=== PATIENT | male | born 1960 | race African-American/Black ===

== ENCOUNTER 2017-07-08 13:56 | Emergency (ER) | payer MEDICAID ==
[~2017-07-08] VITALS: Ht 180.3 cm; Wt 80.0 kg
[2017-07-08] MEDS ORDERED: KETOROLAC 30MG/ML VIAL IM ONE (16:45)
[2017-07-08] MEDS ORDERED: HYDROCODONE/ACETAMINOPHEN 5/325MG TABLET PO ONE (17:15)
[2017-07-08 19:18] VITALS: BP 141/90
== END 2017-07-08 19:35 | disposition home or self-care (01) ==
LOC: ER 14:38
DX: M54.5 Low back pain (principal); M25.551 Pain in right hip; I10 Essential (primary) hypertension; E78.00 Pure hypercholesterolemia, unspecified; E11.9 Type 2 diabetes mellitus without complications
CPT/HCPCS: 72100; 73502; 96372; 99284; J1885; Z7610

== ENCOUNTER 2019-11-30 11:08 | Inpatient (IN) | payer MEDICAID ==
[~2019-11-30] VITALS: Ht 162.6 cm; Wt 74.8 kg
[2019-11-30 12:10] LABS: BASOPHILS % 0.8 % (0.0-2.0); EOSINOPHILS % 4.5 % (0.0-5.0); HEMATOCRIT. 47.3 % (42.0-52.0); HEMOGLOBIN. 15.4 g/dL (14.0-18.0); LYMPHOCYTES % 42.4 % (20.0-50.0); MEAN CORPUSCULAR VOLUME 88.9 fL (80.0-94.0); MONOCYTES % 9.1 % (2.0-8.0); NEUTROPHILS % 43.2 % (40.0-76.0); RED BLOOD CELL COUNT 5.32 mill/uL (4.7-6.1); RED CELL DISTRIBUTION WIDTH 16.3 % (11.6-14.6)
[2019-11-30 12:16] LABS: CHLORIDE 104 mEq/L (98-107)
[2019-11-30 12:20] LABS: ETHANOL BLOOD < 10 mg/dL
[2019-11-30 12:23] LABS: LDL CHOLESTEROL 117 mg/dL (5-100)
[2019-11-30 12:38] LABS: PLATELET 195 x1000/uL (130-400)
[2019-11-30] MEDS ORDERED: ASPIRIN 325MG EC TABLET PO ONE (12:45)
[2019-11-30] MEDS ORDERED: POTASSIUM CHLORIDE 20MEQ TABLET SR PO ONE (12:45)
[2019-11-30] MEDS ORDERED: KCL 10MEQ/50ML PREMIX 50 ML IV ONE (13:00)
[2019-11-30 14:00] VITALS: BP 155/88
[2019-11-30] MEDS ORDERED: SITA100T11 MT (14:29)
[2019-11-30] MEDS ORDERED: METO25TA6 MT (14:29)
[2019-11-30] MEDS ORDERED: HYDR-3281 MT (14:29)
[2019-11-30] MEDS ORDERED: B50 MT (14:29)
[2019-11-30] MEDS ORDERED: LANS30TA4 MT (14:29)
[2019-11-30] MEDS ORDERED: AMA2 MT (14:29)
[2019-11-30] MEDS ORDERED: ATOR20TA65 MT (14:29)
[2019-11-30] MEDS ORDERED: ALOG1TAB8 PO (14:29)
[2019-11-30] MEDS ORDERED: AMLO-337 MT (14:29)
[2019-11-30] MEDS ORDERED: CHLO25TA2 PO (14:29)
[2019-11-30] MEDS ORDERED: METF750T PO (14:29)
[2019-11-30 16:00] VITALS: BP 153/66
[2019-11-30] MEDS: ENOXAPARIN 40MG/0.4ML SYR SUBCUT SCH (16:14)
[2019-11-30] MEDS ORDERED: CLONIDINE 0.1MG TABLET PO PRN (16:30)
[2019-11-30] MEDS ORDERED: ONDANSETRON HCL 4MG/2ML INJ IV PRN (16:30)
[2019-11-30 20:00] VITALS: BP 135/82
[2019-11-30] MEDS: ATORVASTATIN CALCIUM 40MG TABLET PO SCH (21:26)
[2019-11-30 21:48] LABS: FOLIC ACID (FOLATE) SERUM 11.8 ng/mL (>5.38)
[2019-11-30 23:51] LABS: PROTHROMBIN TIME 10.9 sec (9.6-11.0)
[2019-12-01] VITALS: BP 135/79
[2019-12-01 00:10] LABS: T4 FREE 1.13 ng/dL (0.76-1.46)
[2019-12-01 04:00] VITALS: BP 141/85
[2019-12-01 06:15] LABS: HEMATOCRIT. 44.2 % (42.0-52.0); HEMOGLOBIN. 14.6 g/dL (14.0-18.0); MEAN CORPUSCULAR HEMOGLOBIN 29.3 pg (28.0-32.0); MEAN CORPUSCULAR VOLUME 88.7 fL (80.0-94.0); RED BLOOD CELL COUNT 4.98 mill/uL (4.7-6.1); RED CELL DISTRIBUTION WIDTH 16.4 % (11.6-14.6)
[2019-12-01 06:20] LABS: CHLORIDE 103 mEq/L (98-107)
[2019-12-01 08:00] VITALS: BP 130/82
[2019-12-01 08:25] LABS: MEAN PLATELET VOLUME 8.8 fl (7.4-10.4); PLATELET 198 x1000/uL (130-400); PLATELET ESTIMATE NORMAL
[2019-12-01] MEDS ORDERED: ASPIRIN 81MG TABLET PO SCH (09:00)
[2019-12-01] MEDS: CLOPIDOGREL 75MG TABLET PO SCH (10:34)
[2019-12-01] MEDS ORDERED: POTASSIUM CHLORIDE 20MEQ TABLET SR PO SCH ×2 (11:45→15:15)
[2019-12-01 12:00] VITALS: BP 134/74
[2019-12-01] MEDS ORDERED: POTASSIUM CHLORIDE INJ 40 MEQ in DEXT 5% WATER 250 ML IV SCH (13:00)
[2019-12-01] MEDS: ENOXAPARIN 40MG/0.4ML SYR SUBCUT SCH (14:51)
[2019-12-01 16:00] VITALS: BP 136/80
[2019-12-01 18:37] LABS: *AMPHETAMINES SCREEN URINE NEGATIVE (NEGATIVE); *BARBITURATES SCREEN URINE NEGATIVE (NEGATIVE); *COCAINE SCREEN URINE PRESUMTIVE POSITIVE (NEGATIVE); CANNABINOID URINE SCREEN NEGATIVE (NEGATIVE); METHADONE URINE SCREEN NEGATIVE (NEGATIVE); OPIATES URINE SCREEN NEGATIVE (NEGATIVE); PHENCYCLIDINE URINE SCREEN NEGATIVE (NEGATIVE)
[2019-12-01 18:38] LABS: *BENZODIAZEPINES SCREEN URINE NEGATIVE (NEGATIVE)
[2019-12-01 20:00] VITALS: BP 142/87
[2019-12-01] MEDS: ATORVASTATIN CALCIUM 40MG TABLET PO SCH (21:26)
[2019-12-01] MEDS: MAGNESIUM/ALUMINUM HYDROXIDE/SIMETHICONE 30ML UDC PO PRN (22:52)
[2019-12-01] MEDS: ZOLPIDEM TARTRATE 5MG TABLET PO PRN (22:52)
[2019-12-02] VITALS: BP 112/67
[2019-12-02 04:00] VITALS: BP 123/72
[2019-12-02 08:00] VITALS: BP 149/82
[2019-12-02] MEDS: CLOPIDOGREL 75MG TABLET PO SCH (09:35)
[2019-12-02 12:00] VITALS: BP 135/84
[2019-12-02] MEDS: ENOXAPARIN 40MG/0.4ML SYR SUBCUT SCH (13:28)
[2019-12-02 16:00] VITALS: BP 120/77
[2019-12-02 20:00] VITALS: BP 129/74
[2019-12-02] MEDS: ZOLPIDEM TARTRATE 5MG TABLET PO PRN (20:12)
[2019-12-02] MEDS: MAGNESIUM/ALUMINUM HYDROXIDE/SIMETHICONE 30ML UDC PO PRN (20:12)
[2019-12-02] MEDS: ATORVASTATIN CALCIUM 40MG TABLET PO SCH (20:12)
[2019-12-03] VITALS: BP 134/83
[2019-12-03 04:00] VITALS: BP 134/77
[2019-12-03 05:28] LABS: BASOPHILS % 0.6 % (0.0-2.0); EOSINOPHILS % 4.2 % (0.0-5.0); HEMATOCRIT. 41.6 % (42.0-52.0); LYMPHOCYTES % 56.4 % (20.0-50.0); MEAN CORPUSCULAR HEMOGLOBIN 29.6 pg (28.0-32.0); MEAN CORPUSCULAR VOLUME 88.1 fL (80.0-94.0); MEAN PLATELET VOLUME 8.7 fl (7.4-10.4); MONOCYTES % 9.3 % (2.0-8.0); NEUTROPHILS % 29.5 % (40.0-76.0); PLATELET 202 x1000/uL (130-400); RED BLOOD CELL COUNT 4.73 mill/uL (4.7-6.1); RED CELL DISTRIBUTION WIDTH 16.4 % (11.6-14.6)
[2019-12-03 05:35] LABS: CHLORIDE 101 mEq/L (98-107)
[2019-12-03] MEDS: MAGNESIUM/ALUMINUM HYDROXIDE/SIMETHICONE 30ML UDC PO PRN ×2 (05:49→21:31)
[2019-12-03 08:00] VITALS: BP 131/69
[2019-12-03] MEDS: CLOPIDOGREL 75MG TABLET PO SCH (09:06)
[2019-12-03] MEDS ORDERED: POTASSIUM CHLORIDE INJ 40 MEQ in DEXT 5% WATER 250 ML IV NR (10:00)
[2019-12-03] MEDS: LACTULOSE 20G/30ML UDC PO SCH ×3 (11:57→17:00)
[2019-12-03 12:00] VITALS: BP 128/71
[2019-12-03] MEDS: ACETAMINOPHEN 325MG TABLET PO PRN (13:36)
[2019-12-03] MEDS: ENOXAPARIN 40MG/0.4ML SYR SUBCUT SCH (13:56)
[2019-12-03 20:00] VITALS: BP 145/76
[2019-12-03 20:02] VITALS: BP 145/76
[2019-12-03] MEDS: ATORVASTATIN CALCIUM 40MG TABLET PO SCH (21:31)
[2019-12-03] MEDS: ZOLPIDEM TARTRATE 5MG TABLET PO PRN (21:31)
[2019-12-04] VITALS: BP 122/72
[2019-12-04 04:00] VITALS: BP 116/69
[2019-12-04 07:32] LABS: BASOPHILS % 0.5 % (0.0-2.0); EOSINOPHILS % 3.8 % (0.0-5.0); HEMATOCRIT. 42.4 % (42.0-52.0); HEMOGLOBIN. 14.3 g/dL (14.0-18.0); LYMPHOCYTES % 53.7 % (20.0-50.0); MEAN CORPUSCULAR HEMOGLOBIN 29.9 pg (28.0-32.0); MEAN CORPUSCULAR VOLUME 88.9 fL (80.0-94.0); MEAN PLATELET VOLUME 8.8 fl (7.4-10.4); PLATELET 196 x1000/uL (130-400); RED BLOOD CELL COUNT 4.77 mill/uL (4.7-6.1); RED CELL DISTRIBUTION WIDTH 16.4 % (11.6-14.6)
[2019-12-04 07:44] LABS: CHLORIDE 106 mEq/L (98-107)
[2019-12-04 08:00] VITALS: BP 120/65
[2019-12-04] MEDS: CLOPIDOGREL 75MG TABLET PO SCH (09:22)
[2019-12-04 12:00] VITALS: BP 127/77
[2019-12-04] MEDS ORDERED: POTASSIUM CHLORIDE 20MEQ TABLET SR PO NR (12:15)
[2019-12-04] MEDS: ENOXAPARIN 40MG/0.4ML SYR SUBCUT SCH (13:24)
[2019-12-04] MEDS: ACETAMINOPHEN 325MG TABLET PO PRN (14:56)
[2019-12-04 16:00] VITALS: BP 119/74
[2019-12-04 20:00] VITALS: BP 128/73
[2019-12-04] MEDS: ATORVASTATIN CALCIUM 40MG TABLET PO SCH (21:10)
[2019-12-04] MEDS: ZOLPIDEM TARTRATE 5MG TABLET PO PRN (21:18)
[2019-12-04] MEDS: MAGNESIUM/ALUMINUM HYDROXIDE/SIMETHICONE 30ML UDC PO PRN (21:18)
[2019-12-05] VITALS: BP 122/68
[2019-12-05] MEDS: ACETAMINOPHEN 325MG TABLET PO PRN (03:01)
[2019-12-05 04:00] VITALS: BP 137/74
[2019-12-05 08:00] VITALS: BP 124/73
[2019-12-05] MEDS: HYDROCODONE/APAP 7.5/325MG 1 TAB TABLET PO PRN ×3 (08:11→20:33)
[2019-12-05] MEDS: CLOPIDOGREL 75MG TABLET PO SCH (09:33)
[2019-12-05 12:00] VITALS: BP 125/68
[2019-12-05] MEDS: ENOXAPARIN 40MG/0.4ML SYR SUBCUT SCH (13:22)
[2019-12-05 16:00] VITALS: BP 128/66
[2019-12-05] MEDS: EZETIMIBE 10MG TABLET PO SCH (16:50)
[2019-12-05 20:00] VITALS: BP 137/82
[2019-12-05] MEDS: MAGNESIUM/ALUMINUM HYDROXIDE/SIMETHICONE 30ML UDC PO PRN (20:32)
[2019-12-05] MEDS: ZOLPIDEM TARTRATE 5MG TABLET PO PRN (20:32)
[2019-12-05] MEDS: ATORVASTATIN CALCIUM 40MG TABLET PO SCH (20:32)
[2019-12-06] VITALS (7 sets, daily range): BP systolic 120–141; BP diastolic 63–81
[2019-12-06] MEDS: HYDROCODONE/APAP 7.5/325MG 1 TAB TABLET PO PRN ×2 (06:50→15:05)
[2019-12-06 07:19] LABS: BASOPHILS % 0.6 % (0.0-2.0); EOSINOPHILS % 4.7 % (0.0-5.0); HEMATOCRIT. 42.6 % (42.0-52.0); HEMOGLOBIN. 14.4 g/dL (14.0-18.0); LYMPHOCYTES % 55.1 % (20.0-50.0); MEAN CORPUSCULAR HEMOGLOBIN 29.6 pg (28.0-32.0); MEAN CORPUSCULAR VOLUME 87.5 fL (80.0-94.0); MEAN PLATELET VOLUME 8.9 fl (7.4-10.4); MONOCYTES % 11.4 % (2.0-8.0); NEUTROPHILS % 28.2 % (40.0-76.0); PLATELET 205 x1000/uL (130-400); RED BLOOD CELL COUNT 4.87 mill/uL (4.7-6.1); RED CELL DISTRIBUTION WIDTH 16.1 % (11.6-14.6)
[2019-12-06 08:41] LABS: CHLORIDE 105 mEq/L (98-107)
[2019-12-06] MEDS: CLOPIDOGREL 75MG TABLET PO SCH (09:33)
[2019-12-06] MEDS: EZETIMIBE 10MG TABLET PO SCH (09:33)
[2019-12-06] MEDS: ENOXAPARIN 40MG/0.4ML SYR SUBCUT SCH (13:58)
[2019-12-06] MEDS ORDERED: LIP40 PO (18:33)
[2019-12-06] MEDS ORDERED: EZET10TA13 PO (18:33)
[2019-12-06] MEDS ORDERED: CLOP75TA15 PO (18:33)
== END 2019-12-06 21:00 | DRG 45 ==
LOC: ER 11:17 → 5WST 12:53 → EDBEDREQ 13:19 → ENRESERV 13:27 → 5WST 12-03 22:38
PROVIDERS: ADMIT Internal Medicine; ATTEND Internal Medicine
DX: I63.231 Cerebral infarction due to unspecified occlusion or stenosis of right carotid arteries (principal); I10 Essential (primary) hypertension; N17.0 Acute kidney failure with tubular necrosis; E87.6 Hypokalemia; E78.5 Hyperlipidemia, unspecified; E11.36 Type 2 diabetes mellitus with diabetic cataract; G81.94 Hemiplegia, unspecified affecting left nondominant side; R41.4 Neurologic neglect syndrome; E78.00 Pure hypercholesterolemia, unspecified; F17.210 Nicotine dependence, cigarettes, uncomplicated; R26.89 Other abnormalities of gait and mobility; R53.81 Other malaise; F14.10 Cocaine abuse, uncomplicated; J44.9 Chronic obstructive pulmonary disease, unspecified; Z79.82 Long term (current) use of aspirin; Z79.84 Long term (current) use of oral hypoglycemic drugs; Z79.899 Other long term (current) drug therapy; Z71.6 Tobacco abuse counseling
CPT/HCPCS: 36415; 70544; 70553; 71045; 80048; 80053; 80061; 80305; 80320; 82607; 82746; 82962; 83036; 83721; 83735; 84439; 84443; 84481; 84484; 85025; 92523; 92610; 93005; 93306; 93880; 93923; 97116; 97162; 97166; 97530; 99291; J1650; J3480; J7060; G0480